=== PATIENT | female | born 1985 | race Caucasian/White ===

== ENCOUNTER 2018-02-02 08:42 | Outpatient (CLI) | payer OTHER ==
--- NOTE | 2018-02-02 14:04 | MRI Report ---
EXAM: RIGHT KNEE MRI WITHOUT CONTRAST EXAM DATE: 02/02/2018 09:30 AM. CLINICAL HISTORY: Knee pain, right. COMPARISON: None. TECHNIQUE: Multiplanar, multisequence T1-weighted and fluid-sensitive sequences of the knee without c ontrast. Other: None. FINDINGS: Bones: No fractures or subluxations. There is small amount of marrow edema at the tibial spine. No fr actures. No bone lesions. Articular Cartilage: Unremarkable. Medial Meniscus: The medial meniscus is intact. Lateral Meniscus: The lateral meniscus is intact. Cruciate Ligaments: The anterior and posterior cruciate ligaments are intact. Collateral Ligaments: The medial collateral and lateral collateral ligamentous structures are intact. Tendons: The quadriceps, patellar, semimembranosus, and popliteus tendons are unremarkable. Musculature: No edema or fatty atrophy. Other: No effusion. No popliteal cyst. No loose bodies. The medial and lateral retinacula are intact . The subcutaneous tissues and fat pads are unremarkable. IMPRESSION: Small amount of edema at the tibial spine. No fractures. [facility] MUSCULOSKELET[facility]IOLOGY SECTION Referring Provider Line: [phone] SITE ID: [id number]
== END 2018-02-02 08:43 | disposition home or self-care (01) ==
LOC: DI 08:42
PROVIDERS: ATTEND Family Medicine
DX: M25.561 Pain in right knee (principal); R60.0 Localized edema

== ENCOUNTER 2019-02-24 14:53 | Outpatient (CLI) | payer OTHER | END 2019-02-24 23:59 | disposition home or self-care (01) | LOC: LAB.R 14:53 | PROVIDERS: ATTEND Family Medicine | DX: J02.9 Acute pharyngitis, unspecified (principal); R50.9 Fever, unspecified | CPT/HCPCS: 87275; 87276 ==

== ENCOUNTER 2019-03-11 15:12 | Outpatient (CLI) | payer OTHER ==
--- NOTE | 2019-03-11 15:52 | CT Report ---
Reason: MIGRAINE, HEADACHE Procedure Date: 03/11/2019 Accession Number: [id number] / [id number] Procedure: CT - HEAD WO CPT Code: FULL RESULT: EXAM: CT HEAD EXAM DATE: 03/11/2019 03:24 PM. CLINICAL HISTORY: 33-year-old with migraine headache. Evaluate for intracranial pathology. COMPARISON: None. TECHNIQUE: Multiaxial CT images were obtained from the foramen magnum to the vertex. Reformats: Sagittal and coronal. IV contrast: None. In accordance with CT protocol optimization, one or more of the following dose reduction techniques were utilized for this exam: automated exposure control, adjustment of mA and/or KV based on patient size, or use of iterative reconstructive technique. FINDINGS: Parenchyma: No intraparenchymal hemorrhage. No evidence of mass, midline shift, or CT findings of infarction. De La Cruz-white differentiation is distinct. Extraaxial Spaces: Normal for age. No subdural or epidural collections identified. Ventricles: Normal in size and position. Sinuses and Orbits: The orbits appear normal. There is minimal to mild mucosal thickening of the right maxillary sinus. Mastoid air cells and middle ear cavities are clear. Bones: No evidence of fracture or calvarial defect. Other: None. IMPRESSION: 1. No definite acute intracranial pathology seen; specifically, no acute infarct, acute intracranial hemorrhage, mass, or hydrocephalus. [facility]
--- NOTE | 2019-03-11 16:16 | CT Report ---
Reason: MIGARINE,HEADACHE, FEVER, SINUSITIS, ACUTE Procedure Date: 03/11/2019 Accession Number: [id number] / [id number] Procedure: CT - Sinuses CPT Code: FULL RESULT: EXAM: CT SINUS EXAM DATE: 03/11/2019 03:24 PM. HISTORY: 33-year-old presenting with migraine headache, fever, and sinusitis pain. Evaluate sinus pathology. COMPARISONS: None. TECHNIQUE: Routine multi-axial CT imaging performed through the sinuses. Iodinated IV contrast: None. Reconstructions: Multiplanar reformats. In accordance with CT protocol optimization, one or more of the following dose reduction techniques were utilized for this exam: automated exposure control, adjustment of mA and/or KV based on patient size, or use of iterative reconstructive technique. FINDINGS: RIGHT Frontal: Normal. Ethmoid: Normal. Maxillary: Mild mucosal thickening. Sphenoid: Pneumatization of the right lateral sphenoid recess which is patent. The right sphenoid sinus is patent. Drainage Pathways: The frontal recess, ostiomeatal complex and sphenoethmoidal recess are patent and normal. LEFT Frontal: Normal. Ethmoid: Normal. Maxillary: Normal. Sphenoid: Pneumatization of the left lateral sphenoid recess which is patent. The left sigmoid sinus is patent. Drainage Pathways: The frontal recess, ostiomeatal complex and sphenoethmoidal recess are patent and normal. Nasal Cavity: Deviation of the bony nasal septum to the left with a leftward projecting bony nasal spur. No definite nasal polyp or mass seen. There is mucosal thickening of the right nasolacrimal duct. Osseous Structures: Unremarkable. Orbits: Unremarkable. Other: Mastoid air cells and middle ear cavities are clear. IMPRESSION: 1. Mild mucosal thickening of the right maxillary sinus. Remaining visualized paranasal sinuses appear clear. 2. Visualized paranasal sinus drainage pathways are patent. [facility]
== END 2019-03-11 15:13 | disposition home or self-care (01) ==
LOC: DI 15:12
PROVIDERS: ATTEND Family Medicine
DX: G43.909 Migraine, unspecified, not intractable, without status migrainosus (principal); R51 Headache; R50.9 Fever, unspecified; J01.90 Acute sinusitis, unspecified
CPT/HCPCS: 36415; 70450; 70486; 80053; 85025; 87040

== ENCOUNTER 2019-03-17 16:09 | Emergency (ER) | payer OTHER ==
[2019-03-17] MEDS ORDERED: LIDOCAINE 1%-EPI 1:100000 30 ML MDV SUBQ STA (16:51)
--- NOTE | 2019-03-17 17:01 | ED Physician Documentation ---
History of Present Illness - Stated complaint Stated Complaint: SANCHES,FEVER - Chief complaint Chief Complaint: General - History obtained from History obtained from: Patient - History of Present Illness Timing: Other (She has had a headache and fever for most of the last 23 days. She does not have a history of significant headaches. The headache is better in the morning and worse when upright. Throbbing global headache associated with low-grade fevers and nasal discharge. She had a CT showing some maxillary sinus thickening, but saw an ENT who felt it was not sinusitis. She is been on Zithromax and later doxycycline for impetigo which she had no rash. 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 HEENT: Tonsil/Adenoidectomy - Present Medications Home Medications: Ambulatory Orders Medication Instructions Recorded Confirmed Ketorolac [Toradol] 10 mg PO Q6H PRN #10 tablet 10/18/13 Lipase/Protease/Amylase [Creon Dr 6 each PO TIDWM 10/18/13 10/18/13 12,000 Units Capsule] Dicyclomine [Bentyl] 20 mg PO QID #30 capsule 02/01/14 oxyCODONE/ACET 5/325 [Percocet 5 1 - 2 each PO Q6H PRN #20 tablet 02/01/14 mg/325 mg] Metoclopramide [Reglan] 10 mg PO Q6H PRN #20 tablet 03/17/19 - Allergies Allergies/Adverse Reactions: Allergies Allergy/AdvReac Type Severity Reaction Status Date / Time hydromorphone HCl * Allergy Severe Hives Verified 03/17/19 16:24 [From Dilaudid] lamotrigine [From Lamictal] Allergy Severe Rash Verified 03/17/19 16:24 levofloxacin [From Levaquin] Allergy Severe Hives Verified 03/17/19 16:24 methocarbamol [From Robaxin] Allergy Severe Respiratory Verified 03/17/19 16:24 Penicillins Allergy Mild Hives Verified 03/17/19 16:24 - Social History Does the pt smoke?: No Smoking Status: Never smoker Does the pt drink ETOH?: No Does the pt have substance abuse?: No - Family History Family history: reports: Non contributory - Immunizations Immunizations are current?: Yes PD ED PE NORMAL - Vitals Vital signs reviewed: Yes - General General: Alert and oriented X 3, No acute distress - HEENT HEENT: PERRL, EOMI, Ears normal, Pharynx benign - Neck Neck: Supple, no meningeal sign, No bony TTP - Cardiac Cardiac: RRR, No murmur - Respiratory Respiratory: No respiratory distress, Clear bilaterally - Abdomen Abdomen: Normal bowel sounds, Soft, Non tender - Back Back: No CVA TTP, No spinal TTP - Derm Derm: Normal color, Warm and dry - Extremities Extremities: No edema, No calf tenderness / cord - Neuro Neuro: Alert and oriented X 3, Normal speech Eye Opening: Spontaneous Motor: Obeys Commands Verbal: Oriented GCS Score: 15 - Psych Psych: Normal mood, Normal affect Results - Vitals Vitals: Vital Signs - 24 hr 03/17/19 03/17/19 16:24 18:17 Temperature 37.2 C Heart Rate 90 69 Respiratory 16 15 Rate Blood Pressure 118/75 107/71 O2 Saturation 99 100 Oxygen O2 Source Room air - Labs Labs: Microbiology 03/17/19 17:17 Gram Stain - Final Cerebral Spinal Fluid Laboratory Tests 03/17/19 03/17/19 03/17/19 17:17 17:35 17:35 WBC 6.0 RBC 4.37 Hgb 13.5 Hct 39.4 MCV 90.3 MCH 30.8 MCHC 34.1 RDW 12.4 Plt Count 307 MPV 7.9 Neut # (Auto) 2.6 Lymph # (Auto) 2.9 [place] # (Auto) 0.3 Eos # (Auto) 0.0 Baso # (Auto) 0.1 Absolute Nucleated RBC 0.00 Nucleated RBC % 0.0 ESR Sodium Potassium Chloride Carbon Dioxide Anion Gap BUN Creatinine Estimated GFR (MDRD) Glucose Calcium Total Bilirubin AST ALT Alkaline Phosphatase C-Reactive Protein Total Protein Albumin Globulin Albumin/Globulin Ratio Lipase CSF Color COLORLESS CSF Clarity CLEAR Xanthrochromic ABSENT CSF WBC 0 CSF RBC 1 CSF Cell Count Tube # CSF TUBE# 3 CSF Glucose 46 CSF Total Protein 27 Infectious [place] Assay NEGATIVE 03/17/19 03/17/19 03/17/19 17:35 17:35 17:35 WBC RBC Hgb Hct MCV MCH MCHC RDW Plt Count MPV Neut # (Auto) Lymph # (Auto) [place] # (Auto) Eos # (Auto) Baso # (Auto) Absolute Nucleated RBC Nucleated RBC % ESR 6 Sodium 138 Potassium 3.2 L Chloride 104 Carbon Dioxide 24 Anion Gap 10.0 BUN 6 Creatinine 0.6 Estimated GFR (MDRD) 116 Glucose 85 Calcium 9.4 Total Bilirubin 0.7 AST 21 ALT 11 Alkaline Phosphatase 42 C-Reactive Protein < 1.0 Total Protein 7.2 Albumin 4.8 Globulin 2.4 Albumin/Globulin Ratio 2.0 Lipase 24 CSF Color CSF Clarity Xanthrochromic CSF WBC CSF RBC CSF Cell Count Tube # CSF Glucose CSF Total Protein Infectious [place] Assay Procedures - Lumbar Puncture Position: Laying left side Location: L3-L4 Anesthesia: Local lidocaine CSF: Clear Pressures: Opening Pressure (13cm H2o) Other: Sterile prep and drape, Patient tolerated well, No complications PD MEDICAL DECISION MAKING - ED course ED course: 33-year-old woman with several weeks now of headache with some respiratory/sinus symptoms. Has been on a couple of antibiotics without relief. Was referred in by her primary care physician reportedly at the behest of the neurologist whom she has not seen yet for a lumbar puncture with opening pressures. Labs were also repeated with negative inflammatory markers and her LP was normal with a normal opening pressure. Departure - Departure Disposition: 01 Home, Self Care Clinical Impression: Headache Condition: Good Record reviewed to determine appropriate education?: Yes Instructions: ED Cephalgia Unspecified Prescriptions: Metoclopramide [Reglan] 10 mg PO Q6H PRN #20 tablet PRN Reason: nausea or headache Comments: As discussed your diagnostics today are normal, let the neurologist know that your opening pressure was 13 cm of water, you had no white cells and no red cells. Your inflammatory markers are negative, mono negative. Discharge Date/Time: 03/17/19 18:20
[2019-03-17] MEDS ORDERED: LIDOCAINE MPF 2%-EPI 1:200000 20 ML VIAL ONE (17:10)
[2019-03-17] MEDS ORDERED: LIDOCAINE MPF 1%-EPI 1:200000 30 ML VIAL ONE (17:10)
[2019-03-17] MEDS ORDERED: LIDOCAINE 2%-EPI 1:100000 20 ML MDV ONE (17:10)
[2019-03-17] MEDS ORDERED: KETOROLAC 15 MG/ML VIAL IVP STA (17:22)
[2019-03-17] MEDS ORDERED: METOCLOPRAMIDE 10 MG/2 ML VIAL IVP STA (17:22)
[2019-03-17] MEDS ORDERED: diphenhydrAMINE INJ 50 MG/ML VIAL IVP STA (17:22)
[2019-03-17] MEDS ORDERED: SODIUM CHLORIDE 0.9% 1,000 ML IV ONE (17:22)
[2019-03-17 17:42] LABS: CLARITY,CSF CLEAR (CLEAR); COLOR,CSF COLORLESS (COLORLESS); CSF TUBE # CSF TUBE# 3; CSF XANTHOCHROMIA ABSENT (ABSENT); RED BLOOD CELL,CSF 1 /mm^3 (0-1); WHITE BLOOD CELL,CSF 0 /mm^3 (0-5)
[2019-03-17 17:46] LABS: BASOPHILS # (AUTO) 0.1 10^3/uL (0.0-0.1); BASOPHILS % (AUTO) 0.8 %; EOSINOPHILS % (AUTO) 0.8 %; HGB - HEMOGLOBIN 13.5 g/dL (12.0-16.0); LYMPHOCYTES # (AUTO) 2.9 10^3/uL (1.5-3.5); LYMPHOCYTES % (AUTO) 48.8 %; MEAN CORPUSCULAR HEMOGLOBIN 30.8 pg (27.0-31.0); MEAN CORPUSCULAR HGB CONC 34.1 g/dL (32.0-36.0); MEAN CORPUSCULAR VOLUME 90.3 fL (81.0-99.0); MEAN PLATELET VOLUME 7.9 fL (7.9-10.8); MONOCYTES # (AUTO) 0.3 10^3/uL (0.0-1.0); MONOCYTES % (AUTO) 5.4 %; NEUTROPHILS # (AUTO) 2.6 10^3/uL (1.5-6.6); NEUTROPHILS % (AUTO) 44.2 %; PLT - PLATELET COUNT 307 10^3/uL (130-450); RED BLOOD COUNT 4.37 10^6/uL (4.20-5.40); RED CELL DISTRIBUTION WIDTH 12.4 % (12.0-15.0)
[2019-03-17 17:53] LABS: CSF - GLUCOSE 46 mg/dL (45-70)
[2019-03-17 17:57] LABS: ALBUMIN 4.8 g/dL (3.2-5.5); BILIRUBIN,TOTAL 0.7 mg/dL (0.2-1.0); CALCIUM 9.4 mg/dL (8.5-10.3); CREATININE 0.6 mg/dL (0.4-1.0); TOTAL PROTEIN 7.2 g/dL (6.7-8.2)
[2019-03-17 18:18] VITALS: BP 107/71
== END 2019-03-17 18:20 | disposition home or self-care (01) ==
LOC: ED 16:09
DX: R51 Headache (principal); R09.89 Other specified symptoms and signs involving the circulatory and respiratory systems
CPT/HCPCS: 36415; 62270; 80053; 81599; 82945; 83690; 84157; 85025; 85651; 86140; 86308; 87070; 87205; 89051; 96374; 96375; 99283; J1200; J2765; 86695; 86696

== ENCOUNTER 2019-04-12 09:36 | Outpatient (CLI) | payer OTHER ==
[2019-04-12] MEDS ORDERED: GADOBUTROL 7.5 MMOL/7.5 ML VIAL ONE (09:57)
[2019-04-12] MEDS ORDERED: GADOBUTROL 7.5 MMOL/7.5 ML VIAL IVP ONE ×2 (10:43)
--- NOTE | 2019-04-12 19:04 | MRI Report ---
Reason: VISION DISORDER, MIGRAINE Procedure Date: 04/12/2019 Accession Number: [id number] / [id number] Procedure: MRI - Brain W/WO CPT Code: FULL RESULT: MRI BRAIN WITHOUT AND WITH CONTRAST INDICATION: 33-year-old female. Vision disorder. Migraine. TECHNIQUE: 1. T1 sagittal and fat saturated T2 coronal. 2. Axial T1 3D MP-RAGE, FLAIR, T2, T2*GRE and DWI. 3. 7 cc IV Gadavist. T1 3D MP-RAGE. COMPARISON: Head CT 03/11/2019 FINDINGS: Ventricular size is normal. Signal intensity of cortex and white matter appears normal throughout. There appear to be flow voids for the main intracranial arteries. No abnormal diffusion restriction is demonstrated. No evidence of acute or chronic hemorrhage on T2*GRE sequence. No enhancing space-occupying mass lesion is demonstrated. In addition, no pathologic meningeal or cranial nerve enhancement is demonstrated. There appears to be normal intravascular contrast enhancement in the dural venous sinuses and deep venous structures. This effectively excludes the possibility of dural venous sinus thrombosis. Limited assessment of the orbits reveals no gross pathology. The paranasal sinuses are essentially clear. No significant mastoid or middle ear effusion is demonstrated. IMPRESSION: Normal brain MRI.
== END 2019-04-12 09:37 | disposition home or self-care (01) ==
LOC: DI 09:36
PROVIDERS: ATTEND Family Medicine
DX: H53.9 Unspecified visual disturbance (principal); G43.909 Migraine, unspecified, not intractable, without status migrainosus
CPT/HCPCS: 70553; A9585

== ENCOUNTER 2019-07-26 10:10 | Emergency (ER) | payer OTHER ==
--- NOTE | 2019-07-26 10:39 | ED Physician Documentation ---
PD HPI ABD PAIN - Stated complaint Stated Complaint: ABD PX/N/CHILLS - Chief complaint Chief Complaint: Abd Pain - History obtained from History obtained from: Patient - History of Present Illness Timing - onset: Yesterday Timing - duration: Days (2) Timing - details: Abrupt onset, Intermittant (will have intense pain for 2-3 minutes then decrease to mild steady pain or none, epigastric area into back.) Quality: Cramping, Aching, Pain Location: Epigastric Radiation: Other (mid back) Improved by: No: Eating, Meds (antacids and tylenol) Worsened by: No: Eating Associated symptoms: Nausea, Loss of appetite. No: Fever, Vomiting, Diarrhea, Constipation, Dysuria, Hematuria Similar symptoms before: Has not had sx before Recently seen: Not recently seen Review of Systems Constitutional: denies: Fever, Chills, Myalgias Nose: denies: Rhinorrhea / runny nose, Congestion Throat: denies: Sore throat Cardiac: denies: Chest pain / pressure Respiratory: denies: Dyspnea, Cough GI: reports: Abdominal Pain, Nausea. 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/Adenoidectomy - Present Medications Home Medications: Ambulatory Orders Medication Instructions Recorded Confirmed Dicyclomine HCl 10 mg PO Q6H PRN #15 capsule 07/26/19 Hydrocodone/Acetaminophen [[place] 1 each PO Q6H PRN #15 tablet 07/26/19 5-325 Tablet] Ondansetron Odt [Zofran] 4 mg TL Q6H PRN #10 tablet 07/26/19 - Allergies Allergies/Adverse Reactions: Allergies Allergy/AdvReac Type Severity Reaction Status Date / Time hydromorphone HCl * Allergy Severe Hives Verified 07/26/19 10:55 [From Dilaudid] lamotrigine [From Lamictal] Allergy Severe Rash Verified 07/26/19 10:55 levofloxacin [From Levaquin] Allergy Severe Hives Verified 07/26/19 10:55 methocarbamol [From Robaxin] Allergy Severe Respiratory Verified 07/26/19 10:55 Penicillins Allergy Mild Hives Verified 07/26/19 10:55 ketorolac Allergy Nausea Verified 07/26/19 10:55 rifaximin Allergy Unknown Verified 07/26/19 10:55 - Social History Does the pt smoke?: No Smoking Status: Never smoker Does the pt drink ETOH?: No Does the pt have substance abuse?: No - Immunizations Immunizations are current?: Yes PD ED PE NORMAL - Vitals Vital signs reviewed: Yes - General General: Alert and oriented X 3, No acute distress, Well developed/nourished - HEENT HEENT: Moist mucous membranes, Pharynx benign - Neck Neck: Supple, no meningeal sign, No adenopathy - Cardiac Cardiac: RRR, No murmur - Respiratory Respiratory: Clear bilaterally - Abdomen Abdomen: Normal bowel sounds, Soft, Non distended, No organomegaly, Other (some tender epigastric area without guarding, percussion nor rebound tenderness. Some tender RUQ as well. No CVA tenderness. ) - Female Female : Deferred - Rectal Rectal: Deferred - Back Back: No CVA TTP - Derm Derm: Normal color, Warm and dry - Extremities Extremities: No tenderness to palpate, Normal ROM s pain, No edema, No calf tenderness / cord - Neuro Neuro: Alert and oriented X 3, No motor deficit, Normal speech Results - Vitals Vitals: Vital Signs - 24 hr 07/26/19 07/26/19 07/26/19 10:16 10:27 11:00 Temperature 36.8 C Heart Rate 95 93 91 Respiratory 18 18 18 Rate Blood Pressure 133/98 H 125/102 H 111/80 O2 Saturation 100 99 07/26/19 07/26/19 07/26/19 11:52 12:45 14:11 Temperature 36.7 C Heart Rate 90 94 92 Respiratory 18 18 16 Rate Blood Pressure 122/96 H 127/86 H 120/86 H O2 Saturation 100 100 100 Oxygen O2 Source Room air - Labs Labs: Laboratory Tests 07/26/19 07/26/19 07/26/19 10:22 10:46 10:46 WBC 5.9 RBC 4.36 Hgb 13.6 Hct 39.4 MCV 90.4 MCH 31.2 H MCHC 34.5 RDW 11.8 L Plt Count 308 MPV 9.7 Neut # (Auto) 3.4 Lymph # (Auto) 1.8 [place] # (Auto) 0.5 Eos # (Auto) 0.1 Baso # (Auto) 0.1 Absolute Nucleated RBC 0.00 Nucleated RBC % 0.0 D-Dimer Sodium 138 Potassium 3.4 L Chloride 105 Carbon Dioxide 26 Anion Gap 7.0 BUN < 5 L Creatinine 0.6 Estimated GFR (MDRD) 116 Glucose 89 Lactic Acid Calcium 9.0 Total Bilirubin 0.8 AST 21 ALT 15 Alkaline Phosphatase 34 L Total Protein 6.9 Albumin 4.4 Globulin 2.5 Albumin/Globulin Ratio 1.8 Lipase 23 Urine Color LT. YELLOW Urine Clarity CLEAR Urine pH 7.5 Ur Specific [place] <=1.005 Urine Protein NEGATIVE Urine Glucose (UA) NEGATIVE Urine Ketones NEGATIVE Urine Occult Blood NEGATIVE Urine Nitrite NEGATIVE Urine Bilirubin NEGATIVE Urine Urobilinogen 0.2 (NORMAL) Ur Leukocyte Esterase NEGATIVE Ur Microscopic Review NOT INDICATED Urine Culture Comments NOT INDICATED Urine HCG, Qual NEGATIVE 07/26/19 07/26/19 10:46 11:10 WBC RBC Hgb Hct MCV MCH MCHC RDW Plt Count MPV Neut # (Auto) Lymph # (Auto) [place] # (Auto) Eos # (Auto) Baso # (Auto) Absolute Nucleated RBC Nucleated RBC % D-Dimer < 200.0 L Sodium Potassium Chloride Carbon Dioxide Anion Gap BUN Creatinine Estimated GFR (MDRD) Glucose Lactic Acid 0.7 Calcium Total Bilirubin AST ALT Alkaline Phosphatase Total Protein Albumin Globulin Albumin/Globulin Ratio Lipase Urine Color Urine Clarity Urine pH Ur Specific [place] Urine Protein Urine Glucose (UA) Urine Ketones Urine Occult Blood Urine Nitrite Urine Bilirubin Urine Urobilinogen Ur Leukocyte Esterase Ur Microscopic Review Urine Culture Comments Urine HCG, Qual - Rads (name of study) RUQ abd u/s Radiology: Prelim report reviewed (normal gallbladder and bile duct), EMP read contemporaneously, See rad report CT angio chest/aorta Radiology: Prelim report reviewed (normal study. No vascular problems. Otherwise normal too. ), See rad report PD MEDICAL DECISION MAKING - ED course Complexity details: considered differential (seemed possible GB or gastritis, but unusual for waves of intense pain. U/S was normal and labs good, but still had waves of pain upper abd into back. Consider then vascular. Did CT angio chest/aorta and that was normal. Go with gastritis or intestinal spasms for now. ), d/w patient Departure - Departure Disposition: 01 Home, Self Care Clinical Impression: Upper abdominal pain Condition: Stable Record reviewed to determine appropriate education?: Yes Instructions: ED Abdominal Pain Unkn Cause Follow-Up: Pamela Gamboa MD [Primary Care Provider] - Prescriptions: Dicyclomine HCl 10 mg PO Q6H PRN #15 capsule PRN Reason: Abdominal Pain Hydrocodone/Acetaminophen [[place] 5-325 Tablet] 1 each PO Q6H PRN #15 tablet PRN Reason: Pain Ondansetron Odt [Zofran] 4 mg TL Q6H PRN #10 tablet PRN Reason: Nausea / Vomiting Comments: No signs of obvious cause for the pains on your testing today. It sounds like a spasmodic pain so presume possibilities of gastric spasming or intestinal spasming or possibly gallbladder as well. No signs of gallstones or gallbladder wall thickening or signs of inflammation at this time. Stay well-hydrated. Use a antispasmodic dicyclomine every 6 hours if needed for the pains and cramps. Ondansetron if needed for nausea. Add Tylenol or ibuprofen or tramadol if needed for pains. Recheck with your primary care if not improved completely over the next few days. Return if severe again despite the medications. Or if other symptoms develop as well. Rest off work for 1 to 2 days if needed. Forms: Activity restrictions Discharge Date/Time: 07/26/19 14:21
[2019-07-26 10:41] LABS: BILIRUBIN,URINE NEGATIVE (NEGATIVE); GLUCOSE, URINE (UA) NEGATIVE (NEGATIVE); KETONES,URINE (UA) NEGATIVE (NEGATIVE); LEUKOCYTE ESTERASE, URINE NEGATIVE (NEGATIVE); NITRITE,URINE NEGATIVE (NEGATIVE); OCCULT BLOOD,URINE NEGATIVE (NEGATIVE); PH,URINE 7.5 PH (5.0-7.5); PROTEIN,URINE NEGATIVE (NEGATIVE); UROBILINOGEN,URINE 0.2 (NORMAL) E.U./dL (NORMAL)
[2019-07-26 10:43] LABS: CLARITY,URINE CLEAR (CLEAR); HCG UR QUAL NEGATIVE
[2019-07-26] MEDS ORDERED: FAMOTIDINE 20 MG/2 ML VIAL IVP STA (10:57)
[2019-07-26 11:06] LABS: BASOPHILS # (AUTO) 0.1 10^3/uL (0.0-0.1); EOSINOPHILS # (AUTO) 0.1 10^3/uL (0.0-0.7); EOSINOPHILS % (AUTO) 1.9 %; HGB - HEMOGLOBIN 13.6 g/dL (12.0-16.0); LYMPHOCYTES # (AUTO) 1.8 10^3/uL (1.5-3.5); LYMPHOCYTES % (AUTO) 31.1 %; MEAN CORPUSCULAR HEMOGLOBIN 31.2 pg (27.0-31.0); MEAN CORPUSCULAR HGB CONC 34.5 g/dL (32.0-36.0); MEAN CORPUSCULAR VOLUME 90.4 fL (81.0-99.0); MEAN PLATELET VOLUME 9.7 fL (7.9-10.8); MONOCYTES # (AUTO) 0.5 10^3/uL (0.0-1.0); MONOCYTES % (AUTO) 8.5 %; NEUTROPHILS # (AUTO) 3.4 10^3/uL (1.5-6.6); NEUTROPHILS % (AUTO) 57.3 %; PLT - PLATELET COUNT 308 10^3/uL (130-450); RED BLOOD COUNT 4.36 10^6/uL (4.20-5.40); RED CELL DISTRIBUTION WIDTH 11.8 % (12.0-15.0); WHITE BLOOD COUNT 5.9 x10^3/uL (4.8-10.8)
[2019-07-26 12:02] LABS: ALBUMIN 4.4 g/dL (3.2-5.5); ALBUMIN/GLOBULIN RATIO 1.8 (1.0-2.2); ALKALINE PHOSPHATASE 34 IU/L (42-121); ALT ALANINE AMINOTRANSFERASE 15 IU/L (10-60); AST ASPARTATE AMINOTRANSFERASE 21 IU/L (10-42); BILIRUBIN,TOTAL 0.8 mg/dL (0.2-1.0); BUN - BLOOD UREA NITROGEN < 5 mg/dL (6-20); CARBON DIOXIDE - CO2 26 mmol/L (21-32); CHLORIDE 105 mmol/L (101-111); CREATININE 0.6 mg/dL (0.4-1.0); GFR - MDRD 116 (>89); GLUCOSE 89 mg/dL (70-100); LIPASE 23 U/L (22-51); SODIUM 138 mmol/L (135-145); TOTAL PROTEIN 6.9 g/dL (6.7-8.2)
--- NOTE | 2019-07-26 12:07 | Ultrasound Report ---
Reason: upper abd pain in waves since yest Procedure Date: 07/26/2019 Accession Number: [id number] / [id number] Procedure: US - Abdomen Limited CPT Code: FULL RESULT: EXAM: ABDOMEN ULTRASOUND LIMITED, RUQ EXAM DATE: 07/26/2019 11:53 AM. CLINICAL HISTORY: Upper abd pain in waves since yest. COMPARISON: None. TECHNIQUE: Real-time scanning was performed with static images obtained. FINDINGS: Liver: Normal echotexture.No focal lesion. Liver measures 16.5 cm craniocaudally. Main portal vein flow: Hepatopetal. Gallbladder: Gallbladder wall thickness is normal.No gallstones.Sonographic Hernandes sign is absent, per technologist's notes. Biliary System: Common bile duct measures 2.8 mm. No intrahepatic ductal dilatation. Pancreas: Visualized portion is unremarkable. Right Kidney: 10.8 cm longitudinally. Normal echotexture.No hydronephrosis.No contour-deforming mass.No calculus. Other: IMPRESSION: 1. No cholelithiasis or supporting ultrasound evidence of acute cholecystitis. 2. Common bile duct is normal caliber. [facility]
[2019-07-26] MEDS ORDERED: ACETAMINOPHEN 1,000 MG/100 ML 100 ML IV STA (12:34)
[2019-07-26] MEDS ORDERED: IOVERSOL 320 100 ML VIAL IVP ONE ×2 (12:56→16:01)
--- NOTE | 2019-07-26 13:28 | CT Report ---
Reason: epigastric/chest pain; eval for aortic dissection Procedure Date: 07/26/2019 Accession Number: [id number] / [id number] Procedure: CT - ANGIO CHEST W/WO CPT Code: FULL RESULT: EXAM: CT ANGIOGRAM CHEST EXAM DATE: 07/26/2019 01:14 PM. CLINICAL HISTORY: Epigastric/chest pain; eval for aortic dissection. COMPARISON: None. TECHNIQUE: Routine helical imaging was performed through the chest in the pulmonary arterial phase. IV Contrast: OPTI 320 80ML. Reconstructions: Coronal 3-D MIP reconstructions.Sagittal and coronal. In accordance with CT protocol optimization, one or more of the following dose reduction techniques were utilized for this exam: automated exposure control, adjustment of mA and/or KV based on patient size, or use of iterative reconstructive technique. FINDINGS: Pulmonary Arteries: Diagnostic quality: Adequate through the segmental arteries. No evidence for acute or chronic pulmonary emboli. RV/LV is within normal limits. There is no interventricular septal bowing. There is no reflux of contrast material in the IVC. Lungs/Pleura: No consolidation, nodules, or edema. No effusions or pneumothorax. Mediastinum: Normal. No cardiac enlargement or adenopathy. Thoracic Aorta: Unremarkable. Upper Abdomen: Unremarkable. Other: None. IMPRESSION: Normal pulmonary CT angiogram. No pulmonary emboli. [facility]
[2019-07-26] MEDS ORDERED: DICYCLOMINE 10 MG CAPSULE PO STA (14:10)
[2019-07-26 14:12] VITALS: BP 120/86
== END 2019-07-26 14:21 | disposition home or self-care (01) ==
LOC: ED 10:10
DX: R10.13 Epigastric pain (principal); R10.11 Right upper quadrant pain; M54.9 Dorsalgia, unspecified; R11.0 Nausea
CPT/HCPCS: 36415; 71275; 76705; 80053; 81003; 81025; 83605; 83690; 85025; 85379; 96365; 96375; 99284; J0131; Q9967; 81001; 87086

== ENCOUNTER 2020-01-10 08:00 | Outpatient (CLI) | payer OTHER | END 2020-01-10 23:59 | disposition home or self-care (01) | LOC: LAB.R 08:00 | PROVIDERS: ATTEND Physician Assistant Medical | DX: J06.9 Acute upper respiratory infection, unspecified (principal) | CPT/HCPCS: 81599; 87275; 87276 ==

== ENCOUNTER 2020-05-02 15:45 | Outpatient (CLI) | payer OTHER | END 2020-05-02 23:59 | disposition home or self-care (01) | LOC: LAB.R 15:45 | PROVIDERS: ATTEND Physician Assistant Medical | DX: N39.0 Urinary tract infection, site not specified (principal) | CPT/HCPCS: 87086 ==

== ENCOUNTER 2020-10-08 10:46 | Outpatient (CLI) | payer OTHER | END 2020-10-08 10:47 | disposition home or self-care (01) | LOC: LAB.N 10:46 | PROVIDERS: ATTEND Family Medicine | DX: Z20.1 Contact with and (suspected) exposure to tuberculosis (principal) | CPT/HCPCS: 81599; 86480 ==

== ENCOUNTER 2020-10-18 09:17 | Outpatient (CLI) | payer OTHER ==
--- NOTE | 2020-10-18 10:18 | XRAY Report ---
PROCEDURE: Chest 2 View X-Ray INDICATIONS: TB EXPOSURE TECHNIQUE: 2 view(s) of the chest. COMPARISON: None. FINDINGS: Surgical changes and devices: None. Lungs and pleura: No pleural effusions or pneumothorax. Lungs are clear. Mediastinum: Mediastinal contours are normal. Heart size is normal. Bones and chest wall: No suspicious bony abnormalities. Soft tissues appear unremarkable. IMPRESSION: No acute cardiopulmonary process demonstrated radiographically. Reviewed by: Marvin Stevens MD on 10/18/2020 9:17 AM [facility] Approved by: Marvin Stevens MD on 10/18/2020 9:17 AM [facility] Station ID: [id number]
== END 2020-10-18 09:18 | disposition home or self-care (01) ==
LOC: DI 09:17
PROVIDERS: ATTEND Family Medicine
DX: Z20.1 Contact with and (suspected) exposure to tuberculosis (principal)

== ENCOUNTER 2021-02-22 07:00 | Outpatient (CLI) | payer OTHER ==
--- NOTE | 2021-02-22 12:17 | XRAY Report ---
PROCEDURE: Hips 2V BILAT INDICATIONS: BILATERAL HIP JOINT PAIN TECHNIQUE: 3 views of the hip were acquired. COMPARISON: None. FINDINGS: Bones: No fractures or dislocations. No suspicious bony lesions. The visualized pelvic ring appear s intact. Soft tissues: No suspicious soft tissue calcifications or masses. IMPRESSION: Bilateral hip without acute fracture or dislocation. No radiographic findings for significant degener ative changes identified. Reviewed by: Jarad Almendarez MD on 02/22/2021 11:16 AM [facility] Approved by: Jarad Almendarez MD on 02/22/2021 11:16 AM [facility] Station ID: [id number]
== END 2021-02-22 23:59 | disposition home or self-care (01) ==
LOC: DI.N 07:00
PROVIDERS: ATTEND Physician Assistant
DX: M25.551 Pain in right hip (principal)

== ENCOUNTER 2021-06-05 15:26 | Outpatient (CLI) | payer OTHER ==
[2021-06-05 15:58] LABS: BASOPHILS % (AUTO) 0.5 %; EOSINOPHILS # (AUTO) 0.1 10^3/uL (0.0-0.7); EOSINOPHILS % (AUTO) 0.6 %; HCT - HEMATOCRIT 41.8 % (37.0-47.0); HGB - HEMOGLOBIN 14.4 g/dL (12.0-16.0); LYMPHOCYTES # (AUTO) 2.8 10^3/uL (1.5-3.5); MEAN CORPUSCULAR HEMOGLOBIN 31.4 pg (27.0-31.0); MEAN CORPUSCULAR HGB CONC 34.4 g/dL (32.0-36.0); MEAN CORPUSCULAR VOLUME 91.3 fL (81.0-99.0); MEAN PLATELET VOLUME 9.1 fL (7.9-10.8); MONOCYTES # (AUTO) 0.5 10^3/uL (0.0-1.0); MONOCYTES % (AUTO) 6.8 %; NEUTROPHILS # (AUTO) 4.6 10^3/uL (1.5-6.6); PLT - PLATELET COUNT 368 10^3/uL (130-450); RED BLOOD COUNT 4.58 10^6/uL (4.20-5.40); RED CELL DISTRIBUTION WIDTH 11.8 % (12.0-15.0)
[2021-06-05 16:23] LABS: % IRON SATURATION 60 % (20-50); IRON 227 ug/dL (28-170); TOTAL IRON BINDING CAPACITY 377 ug/dL (250-450); TRANSFERRIN 269 mg/dL (192-382)
== END 2021-06-05 15:27 | disposition home or self-care (01) ==
LOC: LAB 15:26
PROVIDERS: ATTEND Physician Assistant Medical
DX: Z83.2 Family history of diseases of the blood and blood-forming organs and certain disorders involving the immune mechanism (principal)
CPT/HCPCS: 36415; 82728; 83540; 84466; 85025

== ENCOUNTER 2021-10-21 09:10 | Outpatient (CLI) | payer OTHER ==
--- NOTE | 2021-10-21 15:01 | XRAY Report ---
PROCEDURE: Elbow 3 View LT INDICATIONS: L ELBOW PX TECHNIQUE: 3 views of the elbow were acquired. COMPARISON: None FINDINGS: Bones: No fractures or dislocations. No suspicious bony lesions. Soft tissues: No elbow joint effusion. No suspicious soft tissue calcifications. IMPRESSION: No evidence acute bony abnormality of the left elbow. If clinical suspicion and/or symptoms persist, further assessment with repeat plain films or advanced imaging (e.g., CT, MRI, or bone scan) may be helpful for further assessment. Reviewed by: Farooq Shrestha MD on 10/21/2021 3:00 PM PST Approved by: Farooq Shrestha MD on 10/21/2021 3:00 PM PST Station ID: [id number]
== END 2021-10-21 23:59 | disposition home or self-care (01) ==
LOC: DI.N 09:10
PROVIDERS: ATTEND Family Medicine
DX: M25.522 Pain in left elbow (principal)

== ENCOUNTER 2022-01-15 08:00 | Outpatient (CLI) | payer OTHER | END 2022-01-15 23:59 | LOC: LAB.N 08:00 | PROVIDERS: ATTEND Physician Assistant | DX: N39.0 Urinary tract infection, site not specified (principal) | CPT/HCPCS: 87086; 87181 ==

== ENCOUNTER 2022-06-02 08:54 | Outpatient (CLI) | payer OTHER ==
--- NOTE | 2022-06-02 15:42 | XRAY Report ---
PROCEDURE: Hand 2 View BILAT INDICATIONS: ARTHRALGIA TECHNIQUE: 2 bilateral views of the hand(s) acquired. COMPARISON: None FINDINGS: Bones: No fractures or dislocations. No suspicious bony lesions. No bony erosions or periarticular osteopenia. Joint spaces are preserved. Soft tissues: No suspicious soft tissue calcifications. IMPRESSION: No findings to suggest osteoarthritis or erosive arthritis. Reviewed by: Gabby Gardner MD on 06/02/2022 3:41 PM PDT Approved by: Gabby Gardner MD on 06/02/2022 3:41 PM PDT Station ID: [id number]
--- NOTE | 2022-06-02 16:42 | XRAY Report ---
PROCEDURE: Foot 2 View BILAT INDICATIONS: ARTHRALGIA TECHNIQUE: 2 views of the right foot and left foot were acquired. COMPARISON: None FINDINGS: Bones: No fractures or dislocations. No suspicious bony lesions. No osseous erosions. No periarticu lar osteopenia. Soft tissues: No tibiotalar joint effusion. Achilles tendon appears normal. IMPRESSION: No osseous lesion. If symptoms and/or clinical concern for pathology persists, further assessment wit h repeat plain film radiographs (7-10 days) or advanced imaging (CT, MR, bone scan) should be conside red. Reviewed by: Tracie Diego MD, PhD on 06/02/2022 4:41 PM PDT Approved by: Tracie Dieog MD, PhD on 06/02/2022 4:41 PM PDT Station ID: [id number]
== END 2022-06-02 08:55 | disposition home or self-care (01) ==
LOC: DI.N 08:54
PROVIDERS: ATTEND Internal Medicine
DX: M79.672 Pain in left foot (principal); M79.671 Pain in right foot; M25.542 Pain in joints of left hand; M25.541 Pain in joints of right hand; Z82.69 Family history of other diseases of the musculoskeletal system and connective tissue; M25.50 Pain in unspecified joint; F43.21 Adjustment disorder with depressed mood; Z83.2 Family history of diseases of the blood and blood-forming organs and certain disorders involving the immune mechanism
CPT/HCPCS: 36415; 80053; 81256; 82728; 83540; 84443; 84466; 85025; 85651; 86140; 86200; 86225; 86235; 86430

== ENCOUNTER 2022-06-02 09:02 | Outpatient (CLI) | payer OTHER ==
[2022-06-02 11:54] LABS: BASOPHILS # (AUTO) 0.1 10^3/uL (0.0-0.1); BASOPHILS % (AUTO) 1.3 %; EOSINOPHILS # (AUTO) 0.1 10^3/uL (0.0-0.7); EOSINOPHILS % (AUTO) 2.2 %; HCT - HEMATOCRIT 42.9 % (37.0-47.0); LYMPHOCYTES # (AUTO) 1.8 10^3/uL (1.5-3.5); LYMPHOCYTES % (AUTO) 38.4 %; MEAN CORPUSCULAR HEMOGLOBIN 32.5 pg (27.0-31.0); MEAN CORPUSCULAR VOLUME 93.1 fL (81.0-99.0); MEAN PLATELET VOLUME 10.5 fL (7.9-10.8); MONOCYTES # (AUTO) 0.3 10^3/uL (0.0-1.0); MONOCYTES % (AUTO) 7.4 %; NEUTROPHILS # (AUTO) 2.3 10^3/uL (1.5-6.6); NEUTROPHILS % (AUTO) 50.5 %; PLT - PLATELET COUNT 359 10^3/uL (130-450); RED BLOOD COUNT 4.61 10^6/uL (4.20-5.40); RED CELL DISTRIBUTION WIDTH 11.9 % (12.0-15.0); WHITE BLOOD COUNT 4.6 x10^3/uL (4.8-10.8)
[2022-06-02 12:31] LABS: THYROID STIMULATING HORMONE 1.26 uIU/mL (0.34-5.60)
[2022-06-02 12:32] LABS: RHEUMATOID FACTOR NEGATIVE (Negative)
[2022-06-02 12:34] LABS: FERRITIN 82.2 ng/mL (11.0-306.8)
[2022-06-02 12:35] LABS: % IRON SATURATION 40 % (20-50); ALBUMIN 4.7 g/dL (3.2-5.5); ALBUMIN/GLOBULIN RATIO 1.5 (1.0-2.2); ALKALINE PHOSPHATASE 38 IU/L (42-121); ALT ALANINE AMINOTRANSFERASE 14 IU/L (10-60); AST ASPARTATE AMINOTRANSFERASE 19 IU/L (10-42); BILIRUBIN,TOTAL 1.1 mg/dL (0.2-1.0); BUN - BLOOD UREA NITROGEN 8 mg/dL (6-20); CALCIUM 9.6 mg/dL (8.5-10.3); CARBON DIOXIDE - CO2 27 mmol/L (21-32); CHLORIDE 103 mmol/L (101-111); CREATININE 0.7 mg/dL (0.4-1.0); GFR - MDRD 95 (>89); GLUCOSE 87 mg/dL (70-100); IRON 147 ug/dL (28-170); POTASSIUM 3.8 mmol/L (3.5-5.0); SODIUM 137 mmol/L (135-145); TOTAL IRON BINDING CAPACITY 371 ug/dL (250-450); TOTAL PROTEIN 7.8 g/dL (6.7-8.2); TRANSFERRIN 265 mg/dL (192-382)
[2022-06-02 13:25] LABS: CRP - C-REACTIVE PROTEIN < 1.0 mg/dL (0-1.0)
[2022-06-03 18:07] LABS: ANTI-DNA (DS) AB QN 1 IU/mL (0-9); CENTROMERE B ANTIBODIES <0.2 AI (0.0-0.9); CHROMATIN ANTIBODIES <0.2 AI (0.0-0.9); JO-1 AB <0.2 AI (0.0-0.9); RIBOSOMAL P ANTIBODIES <0.2 AI (0.0-0.9); RNP ANTIBODIES <0.2 AI (0.0-0.9); SCLERODERMA-70 ANTIBODIES <0.2 AI (0.0-0.9); SJOGREN'S ANTI-SS-A <0.2 AI (0.0-0.9); SJOGREN'S ANTI-SS-B <0.2 AI (0.0-0.9); SMITH ANTIBODIES <0.2 AI (0.0-0.9); SMITH/RNP ANTIBODIES <0.2 AI (0.0-0.9)
[2022-06-04 22:07] LABS: CYCLIC CITRULLINATED PEP IGG/A 2 units (0-19)
== END 2022-06-02 09:03 | disposition home or self-care (01) ==
LOC: LAB.N 09:02
PROVIDERS: ATTEND Internal Medicine
DX: M25.50 Pain in unspecified joint (principal); F43.21 Adjustment disorder with depressed mood; Z83.2 Family history of diseases of the blood and blood-forming organs and certain disorders involving the immune mechanism
CPT/HCPCS: 36415; 80053; 81256; 82728; 83540; 84443; 84466; 85025; 85651; 86140; 86200; 86225; 86235; 86430

== ENCOUNTER 2023-07-31 08:30 | Outpatient (CLI) | payer OTHER ==
--- NOTE | 2023-07-31 10:58 | Ultrasound Report ---
PROCEDURE: Duplex Ext Veins Right INDICATIONS: Right calf pain, elevated d-dimer TECHNIQUE: Real-time imaging, as well as color and pulse Doppler interrogation, were performed of the lower extr emity deep veins from the inguinal ligament to the popliteal fossa. Attempted visualization of the ca lf veins was performed. COMPARISON: None. FINDINGS: The deep veins are normally compressible, and free of intraluminal thrombus. Color and pu lse Doppler demonstrate normal phasic intraluminal flow. There is normal augmentation response to di stal compression maneuver. IMPRESSION: No deep venous thrombosis of the right lower extremity. Reviewed by: Farooq Shrestha MD on 07/31/2023 10:57 AM PDT Approved by: Farooq Shrestha MD on 07/31/2023 10:57 AM PDT Station ID: [id number]
== END 2023-07-31 08:31 | disposition home or self-care (01) ==
LOC: DI 08:30
PROVIDERS: ATTEND Internal Medicine
DX: M79.661 Pain in right lower leg (principal); R79.1 Abnormal coagulation profile